=== PATIENT | female | born 1955 | race Caucasian/White ===

== ENCOUNTER 2017-06-30 13:45 | Outpatient (CLI) ==
[2013-09-28 14:27] VITALS: BMI 23.3
--- NOTE | 2017-06-30 14:35 | DI ---
EXAM: Chest two view, frontal and lateral views. HISTORY: Cough. Acute bronchitis. COMPARISON: 09/28/2013. FINDINGS: The heart size is normal. There is no pulmonary vascular congestion. The lungs are clear save for calcified granulomatous changes. No pleural effusion or pneumothorax is seen. No acute os seous abnormality identified. Clips seen in the upper abdomen. Since the prior study, there has bee n no significant interval change. IMPRESSION: No acute cardiopulmonary process.
== END 2017-06-30 13:46 | disposition home or self-care (01) ==
LOC: RAD 13:45
PROVIDERS: ATTEND Internal Medicine
DX: J20.9 Acute bronchitis, unspecified (principal)

== ENCOUNTER 2018-03-05 14:45 | Outpatient (CLI) ==
[2013-09-28 14:27] VITALS: BMI 23.3
--- NOTE | 2018-03-05 15:17 | DI ---
EXAM: Two views of the chest. History: Cough. Comparison: Chest radiograph 06/30/2017 Findings: Heart size is normal. Micronodular infiltrate is seen within the left lower lung. No appr eciable pleural fluid and no pneumothorax. Hyperinflation. Impression: 1. Left lower lobe micronodular infiltrate suspicious for pneumonia. Follow-up recommended to assur e resolution. 2. Probable chronic obstructive pulmonary disease
[2018-03-06 13:57] VITALS: BMI 22.6
== END 2018-03-05 14:46 | disposition home or self-care (01) ==
LOC: RAD 14:45
PROVIDERS: ATTEND Internal Medicine
DX: R05 Cough (principal); R50.9 Fever, unspecified

== ENCOUNTER 2018-03-06 11:51 | Inpatient (IN) ==
[2018-03-06] MEDS ORDERED: PHENERGAN WITH CODEINE 6.25/10 MG/5 ML PO PRN (12:21)
[2018-03-06] MEDS ORDERED: ATROPINE SULFATE PFS IVP PRN (12:26)
[2018-03-06] MEDS ORDERED: NITROSTAT SL PRN (12:26)
[2018-03-06] MEDS ORDERED: TYLENOL PO PRN (12:26)
[2018-03-06] MEDS ORDERED: VISTARIL INJ IM PRN (12:26)
[2018-03-06 13:57] VITALS: BMI 22.6
[2018-03-06] MEDS: DEXTROSE 5%-1/2NS IV SOLUTION 1,000 ML IV SCH (14:18)
[2018-03-06] MEDS: ROCEPHIN 1 GM in SODIUM CHLORIDE 50 ML IV SCH (14:18)
[2018-03-06] MEDS: SOLU-CORTEF 250 MG IVP SCH ×2 (14:19→20:58)
[2018-03-06] MEDS: NICODERM 21 MG TD SCH (14:19)
[2018-03-06] MEDS: ZITHROMAX PO SCH (14:20)
--- NOTE | 2018-03-06 15:22 | CT ---
EXAM: CT of the chest with and without contrast History: Left lower lobe pneumonia, follow-up Comparison: Chest radiograph 03/05/2018 Technique: Multiplanar CT images through the chest were obtained with and without the administration of IV contrast Findings: Heart size is normal. Trace pericardial fluid. No thoracic aortic aneurysm. No patholog ically enlarged thoracic lymph nodes. Moderate emphysema. No pneumothorax. Scattered areas of subse gmental atelectasis. There is bronchial wall thickening and minimal tree in bud opacities seen withi n the left lower lobe. Within the visualized upper abdomen, status post cholecystectomy. Incidental tiny benign left adrena l adenoma versus hyperplasia. No acute osseous abnormalities. Impression: 1. Minimal left lower lobe tree-in-bud opacities most likely infectious or inflammatory etiology. R ecommend follow-up chest CT in 6 months to document resolution. 2. Moderate emphysema.
[2018-03-06] MEDS: XOPENEX 1.25 MG NEB SCH ×2 (17:28→22:59)
[2018-03-06] MEDS: ATIVAN PO SCH (21:27)
[2018-03-07] MEDS: SOLU-CORTEF 250 MG IVP SCH ×3 (05:06→22:34)
[2018-03-07] MEDS: DEXTROSE 5%-1/2NS IV SOLUTION 1,000 ML IV SCH ×2 (05:08→17:40)
[2018-03-07] MEDS: XOPENEX 1.25 MG NEB SCH ×4 (05:30→23:44)
[2018-03-07] MEDS ORDERED: ASPIRIN EC PO SCH (08:00)
[2018-03-07] MEDS: NICODERM 21 MG TD SCH (09:01)
[2018-03-07] MEDS: ASPIRIN EC PO SCH (09:01)
[2018-03-07] MEDS: ROCEPHIN 1 GM in SODIUM CHLORIDE 50 ML IV SCH (09:02)
[2018-03-07] MEDS: ATIVAN PO SCH ×2 (09:02→20:44)
[2018-03-07] MEDS: ZITHROMAX PO SCH (09:02)
[2018-03-07] MEDS: MULTIVITAMIN TABLET PO SCH (09:02)
[2018-03-08] MEDS: DEXTROSE 5%-1/2NS IV SOLUTION 1,000 ML IV SCH ×2 (04:44→18:16)
[2018-03-08] MEDS: SOLU-CORTEF 250 MG IVP SCH ×3 (04:44→20:24)
[2018-03-08] MEDS: XOPENEX 1.25 MG NEB SCH ×4 (05:25→23:30)
[2018-03-08] MEDS: ATIVAN PO SCH ×2 (08:40→20:18)
[2018-03-08] MEDS: ROCEPHIN 1 GM in SODIUM CHLORIDE 50 ML IV SCH (08:40)
[2018-03-08] MEDS: MULTIVITAMIN TABLET PO SCH (08:41)
[2018-03-08] MEDS: ASPIRIN EC PO SCH (08:41)
[2018-03-08] MEDS: NICODERM 21 MG TD SCH (08:41)
[2018-03-08] MEDS: ZITHROMAX PO SCH (08:41)
[2018-03-09] MEDS: SOLU-CORTEF 250 MG IVP SCH ×2 (04:32→13:15)
[2018-03-09] MEDS: XOPENEX 1.25 MG NEB SCH ×2 (05:25→11:14)
[2018-03-09] MEDS: DEXTROSE 5%-1/2NS IV SOLUTION 1,000 ML IV SCH (05:55)
--- NOTE | 2018-03-09 08:43 | PCM.PROG ---
Attending Provider: ATTENDING PROVIDER: Dr. ANNE-MARIE MACIAS This patient is seen with Angelina Márquez, Nurse Practitioner. DATE OF SERVICE: 03/09/18 SUBJECTIVE: This 62 year old WHITE/ F was hospitalized 03/06/18. The patient is sitting in bed, alert. Shortness of breath and pleuritic pain have improved. She states she is ready to go home. REVIEW OF SYSTEMS: CONSTITUTIONAL: No night sweats. No fatigue, malaise, lethargy. No fever or chills. HEENT: Eyes: No visual changes. No eye pain. No eye discharge. ENT: No runny nose. No epistaxis. No sinus pain. No odynophagia. No congestion. RESPIRATORY: Cough. No congestion. No hemoptysis. No shortness of breath. CARDIOVASCULAR: No angina symptoms. No CHF symptoms. No atypical chest pain for CAD. No palpitations. No orthopnea.. GASTROINTESTINAL: No abdominal pain. No nausea or vomiting. No diarrhea or constipation. No hematemesis. No hematochezia. GENITOURINARY: No urgency. No frequency. No dysuria. No hematuria. No obstructive symptoms. No discharge. No pain. No significant abnormal bleeding. MUSCULOSKELETAL: No musculoskeletal pain; no joint swelling. NEUROLOGICAL: Awake, alert, oriented to time, place and person. No headache. No neck pain. No syncope. No seizures. No dizziness. PSYCHIATRIC: Not anxious. No depression. No suicidal thoughts. No homicidal thoughts. SKIN: No rash. No lesions. No wounds. ENDOCRINE: No unexplained weight loss. No weight gain. HEMATOLOGIC/LYMPHATIC: No anemia. No purpura. No petechiae. No prolonged or excessive bleeding. No palpable lymph nodes. PHYSICAL EXAMINATION: GENERAL: The patient is awake, alert and oriented, sitting in bed in no distress. VITAL SIGNS: Temperature 97.5 F, Pulse 72, Respiratory Rate 22, BP 115/68, Pulse Ox 96% HEENT: Head normocephalic, atraumatic. Eyes: Extraocular muscles are intact. Pupils are equal, round and reactive to light and accommodation. Ears: No lesions. Nose appeared normal. Throat: No exudate or erythema. NECK: Supple. No JVD, no carotid bruit. No lymphadenopathy or thyromegaly. LUNGS: Diminished breath sounds bilaterally, faint wheeze on the left. Percussion note normal. Chest symmetrical. HEART: S1, S2, no S3. No murmurs. No cyanosis or clubbing. No ascites. Pulses: Dorsalis pedis and posterior tibial pulses +1 to +2 both sides. ABDOMEN: Soft. Non-tender. Bowel sounds active. No CVA tenderness. No mass felt. EXTREMITIES: No edema. Full range of motion of all extremities, equal. NEUROLOGIC: No focal deficit. Cranial nerves II through XII are grossly intact. No headache, no double vision or headache. SKIN: Not dry. Intact. Turgor-normal. LYMPHATIC: No palpable lymph nodes/no lymphedema. MUSCULOSKELETAL: Normal joints with no swelling. Muscle tone is normal. LAB REVIEW: 03/09/18 04:05 03/09/18 04:05 03/09/18 04:05: Sodium 137, Potassium 4.0, Chloride 105, Carbon Dioxide 25, Anion Gap 11.0, BUN 9, Creatinine 0.64, Estimated GFR (MDRD) 94.00, BUN/ Creatinine Ratio 14.06, Glucose 148 H, Calcium 8.4, Total Bilirubin 0.1, AST 22 , ALT 31, Alkaline Phosphatase 47 L, Total Protein 5.5 L, Albumin 2.7 L, Globulin 2.8, Albumin/Globulin Ratio 0.96 03/09/18 04:05: WBC 9.95, RBC 3.86 L, Hgb 11.8 L, Hct 35.0 L, MCV 90.7, MCH 30.6 , MCHC 33.7, RDW Coeff of Evie 13.3, Plt Count 302, Immature Gran % (Auto) 0.6, Neut % (Auto) 81.7, Lymph % (Auto) 11.4, [place] % (Auto) 6.2, Eos % (Auto) 0.0, Baso % (Auto) 0.1, Immature Gran # (Auto) 0.1, Neut # (Auto) 8.1 H, Lymph # ( Auto) 1.1, [place] # (Auto) 0.6, Eos # (Auto) 0.0, Baso # (Auto) 0.0 ASSESSMENT: 1. LEFT LOWER LOBE PNEUMONIA 2. COPD 3. SMOKER 4. ANXIETY PLAN: 1. D/C home. 2. The patient will benefit from Albuterol nebulizer machine at home at least three times a day. 3. D/C home today. 4. The patient is to be off work until . 5. The patient is to be seen in office by Dr. Macias or Angelina Márquez APRN. 6. Counseling for smoking done - prescription for Nicotine patch. 7. Continue Levaquin and Prednisone at home. Plan and coordination of the patient's care discussed in the presence of [employer] Specialist and nurse. CONDITION: Stable SCRIBED BY: LISA BENJAMIN Cardroom Drawing Runner scribed while in presence of service performed by Dr. Macias/Angelina Márquez APRN on 03/09/18 ([id number])
[2018-03-09] MEDS: NICODERM 21 MG TD SCH (09:45)
[2018-03-09] MEDS: ATIVAN PO SCH (09:45)
[2018-03-09] MEDS: ROCEPHIN 1 GM in SODIUM CHLORIDE 50 ML IV SCH (09:45)
[2018-03-09] MEDS: MULTIVITAMIN TABLET PO SCH (09:45)
[2018-03-09] MEDS: ASPIRIN EC PO SCH (09:45)
[2018-03-09 13:21] VITALS: BP 117/76; TEMP 98
--- NOTE | 2018-03-09 14:19 | CM.DICTOOL ---
ADMISSION: 03/06/18 11:51 DISCHARGE: MARCH 09, 2018 DATE OF SERVICE: 03/09/18 FINAL DIAGNOSIS PNEUMONIA, LLL PLEURITIC CHEST PAIN DEHYDRATION COPD, SEVERE PER PFT TOBACCO USE DYSLIPIDEMIA GENERALIZED ANXIETY DISORDER PULMONARY EMBOLISM, AGE 30 CHOLECYSTECTOMY LAST VITALS Temp Pulse Resp BP Pulse Ox 98 F 88 16 117/76 95 03/09/18 13:20 03/09/18 13:20 03/09/18 13:20 03/09/18 13:20 03/09/18 13:20 TAKE THESE MEDICATIONS AT HOME Aspirin (Aspirin Ec) 81 mg PO DAILYWM [facility] Last Admin: 03/09/18 09:45 Dose: 81 mg Lorazepam (Ativan) 0.5 mg PO BID [facility] Last Admin: 03/09/18 09:45 Dose: 0.5 mg Multivitamins (Multivitamin Tablet) 1 tab PO DAILY [facility] Last Admin: 03/09/18 09:45 Dose: 1 tab Nicotine (Nicoderm 21 Mg) 1 patch TD DAILY [facility] Last Admin: 03/09/18 09:45 Dose: 1 patch Promethazine HCl/Codeine (Phenergan With Codeine 6.25/10 Mg/5 Ml) 5 - 10 ml PO Q6H PRN PRN Reason: Cough Prednisone 10 mg BID Last Admin: Levaquin 500 mg Daily Last Admin: Albuterol Nebs 0.083% 1 treatment by nebulizer TID Last Admin: ALLERGIES ciprofloxacin [From Cipro] Adverse Reaction (Verified 09/28/13 16:55) ciprofloxacin HCl [From Cipro] Adverse Reaction (Verified 09/28/13 16:55) Discontinued Medications None NEW PRESCRIPTIONS: Albuterol Nebulizer 0.083% take 1 treatment three times a day Nicoderm patch 21 mg apply to skin daily for 4 weeks, then 14 mg daily for 2 weeks, then 7 mg daily for 2 weeks. SMOKING: Advised to stop smoking DISEASE SPECIFIC EDUCATION: Smoking cessation Use of Nebulizer Use of oral steroids and risk of GI irriation, bone demineralization Complete current antibiotic and steroid already prescribed Activity LAB REVIEW: 03/09/18 04:05 03/09/18 04:05 03/09/18 04:05: Sodium 137, Potassium 4.0, Chloride 105, Carbon Dioxide 25, Anion Gap 11.0, BUN 9, Creatinine 0.64, Estimated GFR (MDRD) 94.00, BUN/ Creatinine Ratio 14.06, Glucose 148 H, Calcium 8.4, Total Bilirubin 0.1, AST 22 , ALT 31, Alkaline Phosphatase 47 L, Total Protein 5.5 L, Albumin 2.7 L, Globulin 2.8, Albumin/Globulin Ratio 0.96 03/09/18 04:05: WBC 9.95, RBC 3.86 L, Hgb 11.8 L, Hct 35.0 L, MCV 90.7, MCH 30.6 , MCHC 33.7, RDW Coeff of Evie 13.3, Plt Count 302, Immature Gran % (Auto) 0.6, Neut % (Auto) 81.7, Lymph % (Auto) 11.4, [place] % (Auto) 6.2, Eos % (Auto) 0.0, Baso % (Auto) 0.1, Immature Gran # (Auto) 0.1, Neut # (Auto) 8.1 H, Lymph # ( Auto) 1.1, [place] # (Auto) 0.6, Eos # (Auto) 0.0, Baso # (Auto) 0.0 PLAN: Discharge home Diet: Regular diet as tolerated Activity: Gradually resume as tolerated Rest at home Appointment March 12 at [address] Ling. No work until released by Dr. Ling Use nebulizer three times daily especially while home. After return to work, the inhaler may be used a total of 3 times daily. Code Status: Full Code Mrs. Siddiqi is alert and oriented x 3. She is independent with Activities of Daily Living and is ambulatory without use of oxygen or assistive device. She has received a nebulizer for her use at home thru [facility]. She reports she has used a nebulizer at home that she purchased, but is now broken. Meal intakes are good at 50-100%. She has prescriptions at home from her office visit on ; Levaquin, Prednisone, Inhaler and Phenergan with Codeine. She is advised to complete these medications as directed. Skin is intact and free of irritation or decubitus ulcers. Ayo Ling MD Angelina Márquez APRN
--- NOTE | 2018-03-09 15:28 | PN ---
DATE OF SERVICE: 03/07/18 SUBJECTIVE: 62 year old white female hospitalized with left lower lobe pneumonia. The patient's condition is improving. She is coughing much less, still has croupy cough and had a little sweating. Appetite is improving some. She still looks emaciated and dehydrated. Her appetite seems to be improving some. The patient is a heavy smoker. REVIEW OF SYSTEMS: CONSTITUTIONAL: No night sweats. No fatigue, malaise, lethargy. No fever or chills. HEENT: Eyes: No visual changes. No eye pain. No eye discharge. ENT: No runny nose. No epistaxis. No sinus pain. No sore throat. No odynophagia. No congestion. RESPIRATORY: Mild cough with congestion, yellowish sputum production. No hemoptysis. Shortness of breath on exertion. CARDIOVASCULAR: No angina symptoms. No CHF symptoms. No atypical chest pain for CAD. No palpitations. No orthopnea. GASTROINTESTINAL: No abdominal pain. No nausea or vomiting. No diarrhea or constipation. No hematemesis. No hematochezia. GENITOURINARY: No urgency. No frequency. No dysuria. No hematuria. No obstructive symptoms. No discharge. No pain. No significant abnormal bleeding. MUSCULOSKELETAL: No musculoskeletal pain; no joint swelling. NEUROLOGICAL: No headache. No neck pain. No syncope. No seizures. No dizziness. PSYCHIATRIC: Not anxious. No depression. No suicidal thoughts. No homicidal thoughts. SKIN: No rash. No lesions. No wounds. ENDOCRINE: No unexplained weight loss. No weight gain. HEMATOLOGIC/LYMPHATIC: No anemia. No purpura. No petechiae. No prolonged or excessive bleeding. No palpable lymph nodes. PHYSICAL EXAMINATION: GENERAL: The patient is oriented to time, place and person. VITAL SIGNS: Temperature 97.8, pulse 80, respiratory rate 15, blood pressure 115/60, pulse ox 97% on room air. HEENT: Head normocephalic, atraumatic. Eyes: Extraocular muscles are intact. Pupils are equal, round and reactive to light and accommodation. Ears: No lesions. Nose appeared normal. Throat: No exudate or erythema. NECK: Supple. No JVD, no carotid bruit. No lymphadenopathy or thyromegaly. LUNGS: Decreased breath sounds with few crepitations right side. Harsh breathing and good air entry. Percussion note normal. Chest symmetrical. HEART: S1, S2, no S3. No murmurs. No cyanosis or clubbing. No ascites. Pulses: Dorsalis pedis and posterior tibial pulses +1. ABDOMEN: Soft. Nontender. Bowel sounds active. No CVA tenderness. No mass felt. EXTREMITIES: No edema. Full range of motion of all extremities, equal. NEUROLOGIC: No focal deficit. Cranial nerves II through XII are grossly intact. No headache, no double vision or headache. SKIN: Not dry. Intact. Turgor - normal. LYMPHATIC: No palpable lymph nodes/no lymphedema. MUSCULOSKELETAL: Normal joints with no swelling. Muscle tone is normal. ASSESSMENT: 1. Acute pneumonitis involving left lower lobe with severe chronic lung disease. PLAN: 1. CAT scan finding discussed with the patient that she has moderate emphysema. 2. Advised to quit smoking, counseling for smoking done 3. Continue antibiotic, steroids and NEBS treatment 4. Advised to rest. CONDITION: Stable. TIME SPENT: More than 30 minutes. Plan and coordination of the patient's care discussed in the presence of nurse. KENNY
--- NOTE | 2018-03-09 15:34 | PN ---
DATE OF SERVICE: 03/08/18 SUBJECTIVE: 62 year old white female hospitalized after being seen in the office two consecutive days. The first day that was on she came and the chest x- ray showed pneumonia. She was advised hospitalized, she was called at home. She declined but she was advised to see me on the next day when she came over she said that she hasn't felt good and she has missed a lot of days of work. She is has been sick for nearly 2-3 weeks. She had fever and chills. She was hospitalized and her condition has improved. She is up and about hydration status seems to be better. Appetite has been improving. REVIEW OF SYSTEMS: CONSTITUTIONAL: No night sweats. No fatigue, malaise, lethargy. No fever or chills. HEENT: Eyes: No visual changes. No eye pain. No eye discharge. ENT: No runny nose. No epistaxis. No sinus pain. No sore throat. No odynophagia. No congestion. RESPIRATORY: Mild cough, congestion sputum is getting whitish colored. No hemoptysis. No shortness of breath. CARDIOVASCULAR: No angina symptoms. No CHF symptoms. No atypical chest pain for CAD. No palpitations. No orthopnea. GASTROINTESTINAL: No abdominal pain. No nausea or vomiting. No diarrhea or constipation. No hematemesis. No hematochezia. GENITOURINARY: No urgency. No frequency. No dysuria. No hematuria. No obstructive symptoms. No discharge. No pain. No significant abnormal bleeding. MUSCULOSKELETAL: No musculoskeletal pain; no joint swelling. NEUROLOGICAL: No headache. No neck pain. No syncope. No seizures. No dizziness. PSYCHIATRIC: Not anxious. No depression. No suicidal thoughts. No homicidal thoughts. SKIN: No rash. No lesions. No wounds. ENDOCRINE: No unexplained weight loss. No weight gain. HEMATOLOGIC/LYMPHATIC: No anemia. No purpura. No petechiae. No prolonged or excessive bleeding. No palpable lymph nodes. PHYSICAL EXAMINATION: VITAL SIGNS: Temperature 97.6, pulse 72, respiratory rate 16, blood pressure 110/62 and pulse ox 97%. HEENT: Head normocephalic, atraumatic. Eyes: Extraocular muscles are intact. Pupils are equal, round and reactive to light and accommodation. Ears: No lesions. Nose appeared normal. Throat: No exudate or erythema. NECK: Supple. No JVD, no carotid bruit. No lymphadenopathy or thyromegaly. LUNGS: Decreased breath sounds with mild wheeze. Percussion note normal. Chest symmetrical. HEART: S1, S2, no S3. No murmurs. No cyanosis or clubbing. No ascites. Pulses: Dorsalis pedis and posterior tibial pulses +1 to +2 both sides. ABDOMEN: Soft. Nontender. Bowel sounds active. No CVA tenderness. No mass felt. EXTREMITIES: No edema. Full range of motion of all extremities, equal. NEUROLOGIC: No focal deficit. Cranial nerves II through XII are grossly intact. No headache, no double vision or headache. SKIN: Not dry. Intact. Turgor - normal. LYMPHATIC: No palpable lymph nodes/no lymphedema. MUSCULOSKELETAL: Normal joints with no swelling. Muscle tone is normal. ASSESSMENT: 1. Acute pneumonitis, left lower lobe improving 2. Anemia, chronic 3. Chronic lung disease with smoking 4. Hyperglycemia with steroids PLAN: 1. Do PFT 2. Continue steroids and antibiotics 3. Side effects of the steroids including avascular necrosis of the femoral head discussed. 4. Counseling for smoking done again 5. The patient is advised not to go back to work after she is released likely discharge date tomorrow. CONDITION: Stable TIME SPENT: More than 30 minutes. Plan and coordination of the patient's care discussed in the presence of nurse. KENNY
--- NOTE | 2018-03-13 09:17 | PN ---
03/06/18: Level 5 03/07/18: Intermediate 03/08/18: Intermediate 03/09/18: D as in discharge MTDD
--- NOTE | 2018-03-13 11:11 | PN ---
DATE OF SERVICE: 03/09/18 DISCHARGE NOTE SUBJECTIVE: The patient was seen and examined with Nurse Practitioner. The patient was hospitalized with left lower lobe pneumonia. The patient was treated with IV antibiotic Rocephin and Zithromax, given steroids and NEBS treatment. Her condition has improved. Clinically the pneumonia has resolved. The patient is a heavy smoker. Counseling for smoking was done. She was strongly advised to have CT scan of the chest done within 6 months. She said that she would think about it and let me know. CONDITION: Stable. TIME SPENT: More than 30 minutes. Plan and coordination of the patient's care discussed in the presence of nurse. KENNY
--- NOTE | 2018-03-13 15:17 | HP ---
DATE OF SERVICE: 03/06/18 REASON FOR HOSPITALIZATION/HISTORY OF PRESENT ILLNESS: Recheck on pneumonia Chest x-ray left lower lobe pneumonia with green sputum. Fever last night-worn out and can't eat. Lost 5 pounds. Was advised hospitalization yesterday and declined and was given Levaquin. PAST MEDICAL HISTORY: COPD Dyslipidemia Vitamin D deficiency Cervical RAD BIB Chronic bronchitis PAST SURGICAL HISTORY: Gallbladder Tonsils Uterine suspension REVIEW OF SYSTEMS: CONSTITUTIONAL: Fever, Fatigue. HEENT: Sinus drainage, no sore throat. RESPIRATORY: Cough with green sputum. CARDIOVASCULAR: Atypical chest pain for coronary artery disease left more than right. No angina, CHF symptoms, palpitations. Shortness of breath. GASTROINTESTINAL: No melena or abdominal pain. No GERD. Nauseated. GENITOURINARY: No hematuria, no prostatism, no polyuria. GENERAL FORECASTER: No blackout, no dizziness, no headache, no double vision. MUSCULOSKELETAL: Osteoarthritis pain, no joint swelling. ENDOCRINE: No weight loss, no weight gain. SKIN: Not dry, no rash. PSYCHIATRIC: Anxious, no depression, no suicidal thoughts, no homicidal thoughts. SOCIAL HISTORY: Marital Status: . Alcohol Usage: No. Tobacco Usage: Yes. FAMILY HISTORY: Father Mother Brothers 4 Sisters 3 MEDICATIONS: Ativan 0.5mg twice a day Vitamins Aspirin 81mg PO daily ALLERGIES: Cipro Klonopin PHYSICAL EXAMINATION: V/S: Pulse 102, blood pressure 120/70, temperature 98.2 and pulse ox 95%. GENERAL APPEARANCE: Oriented times three. HEENT: Pale, dry mucosa membranes. Yellowish sputum. NECK: No JVP, no bruits. RESPIRATORY: Decreased breath sounds creps left lower. CARDIOVASCULAR: S1, S2, no S3, no murmurs. No cyanosis, clubbing. No ascites. GI/ABDOMEN: No tenderness. Bowel sounds are active. EXTREMITIES: edema, pulses +1, equal. GENERAL FORECASTER: Deep tendon reflexes, sensory, motor and gait all normal. RECTAL: Refused/PELVIC: [place], advised but patient refused. ASSESSMENT: 1. Left lower lobe pneumonia 2. Pleuritic pain 3. Shortness of breath 4. Dehydration 5. COPD 6. Acute bronchitis 7. Chronic bronchitis/smoking 8. COPD 9. Dyslipidemia 10.Status post cholecystectomy 11.Cervical RAD 12.Vitamin D deficiency 13.BIB PLAN: 1. Admit 2. Routine telemetry orders 3. CBC and CMP daily 4. Solu-Cortef 125mg IV Q 8 hours 5. Xopenex 1.25 treatment Q 6 hours scheduled 6. D5 1/2 normal saline at 83cc and hour IV 7. O2 at 1-2 liters 8. Stat ABG 9. Sputum culture 10.Regular diet 11.Phenergan with codeine 1-2 teaspoons Q 6 hours PRN for cough 12.Rocephin 1 gram IV daily 13.Zithromax 500mg PO daily x3 days 14.CT chest with and without contrast today 15.Nicotine patch TIME SPENT: More than 70 minutes. MTDD
--- NOTE | 2018-03-19 15:29 | DS ---
DATE OF SERVICE: 03/09/18 FINAL DIAGNOSIS: 1. Pneumonia, Left lower lobe 2. Pleuritic chest pain 3. Dehydration 4. COPD, severe per PFT 5. Tobacco use 6. Dyslipidemia 7. Generalized anxiety disorder 8. Pulmonary embolism, age 30 9. Cholecystectomy LAST VITALS: Temperature 98, pulse 88, respiratory rate 16, blood pressure 117/76 and pulse ox 95%. DISCHARGE INSTRUCTIONS: Discharge home. Appointment March [address] Ling. No work until released by Dr. Ling. Use Nebulizer three times daily especially while home. After work, the inhaler may be used a total of three times daily. Full code status. MEDICATIONS AT DISCHARGE: Aspirin 81mg Po daily Ativan 0.5mg PO twice a day Multivitamin one tablet PO daily NicoDerm one patch TD daily Phenergan with Codeine 5-10ml PO Q 6 hours PRN Prednisone 10mg twice a day Levaquin 500mg PO daily Albuterol one treatment by nebulizer three times a day ALLERGIES: Ciprofloxacin Ciprofloxacin HCL NEW PRESCRIPTIONS: Albuterol take one treatment three times a day NicoDerm Patch 21mg apply to skin daily for 4 weeks, then 14mg daily for 2 weeks , then 7mg daily for 2 weeks. DIET INSTRUCTIONS: Regular diet as tolerated ACTIVITY: Gradually resume as tolerated Rest at home SMOKING: Advised to stop smoking DISEASE SPECIFIC EDUCATION: Smoking cessation Use of Nebulizer Use of oral steroids and risk of GI irritation, bone demineralization Complete current antibiotics and steroid already prescribed Activity HOSPITAL COURSE: This is a 62 year old white female who presented to our office on 03/05/18 with coughing, congestion, low grade. She refused hospital admission at that time. She did agree to get a chest x-ray and we started her on Levaquin 500mg giving 4mg of Decadron IM. She did a chest x-ray which revealed left lower lobe and middle lobe pneumonia. She presented the following day to our office on for followup. She has low O2 sat still with fever with short of breath and experiencing pleuritic pain on the left side. She was admitted and placed on Solu-Cortef 125mg IV Q 8 hours along with Rocephin 1 gram IV daily and Zithromax 500mg PO daily times three days. CT scan of the chest revealed both left middle and lower lobe pneumonia. Chest pain was pleuritic in nature. Her kidney function was slightly elevated and showing dehydration. The patient has severe COPD due to long history of smoking. We gave her a NicoDerm patch while she was in the hospital and she seems to have been doing well with that. Today on day of discharge she states that she would like a prescription for the NicoDerm Patch and like to attempt to quit smoking. We also started her on Xopenex NEBS treatments Q 6 hours scheduled. The patient responded very well to these and has done well with a good response as far as oxygen saturation and coughing. Today on examination she is moving much more air. There is just a faint wheeze in the left middle lobe and she has been afebrile for the past 48 hours. Her pulse ox is 95% on room air and blood pressure is well controlled. We will send her home. She already has Levaquin 500mg and Prednisone 10mg at home and we gave her an order form for Nebulizer machine and Albuterol NEB treatments which she is to do 3 times daily. We will followup with her in the office later this week. She is not to return to work until we see her in the office on . TIME SPENT: More than 60 minutes. KENNY
== END 2018-03-09 17:15 | disposition home or self-care (01) | DRG 204 ==
LOC: MEDSURG A 11:51
PROVIDERS: ADMIT Internal Medicine; ATTEND Internal Medicine
DX: R06.02 Shortness of breath (principal); R07.81 Pleurodynia; J20.9 Acute bronchitis, unspecified; E86.0 Dehydration; J44.9 Chronic obstructive pulmonary disease, unspecified; E78.5 Hyperlipidemia, unspecified; F41.1 Generalized anxiety disorder; E55.9 Vitamin D deficiency, unspecified; Z72.0 Tobacco use; Z86.711 Personal history of pulmonary embolism
CPT/HCPCS: 36415; 80053; 81001; 82550; 82803; 84484; 85025; 87070; 93005; 93010; 94640